=== PATIENT | female | born 1980 | race Caucasian/White ===

== ENCOUNTER → 2019-05-11 | Outpatient (REF) | payer OTHER ==
[~2019-05-11] MED LIST: Birth control pill OR; DOCU5LIQ FT; IBUP100S44 FT; MAPA500T17 GT; MOM30SS FT; MULTTAB20 PO
[2019-05-11 22:48] LABS: INFLUENZA A AMPLIFICATION POSITIVE (NEGATIVE); INFLUENZA B AMPLIFICATION NEGATIVE (NEGATIVE)
== END ==
LOC: M LAB REF 21:56
PROVIDERS: ATTEND Physician Assistant
DX: J11.1 Influenza due to unidentified influenza virus with other respiratory manifestations (principal)